=== PATIENT | female | born 1960 | race African-American/Black ===

== ENCOUNTER 2024-10-22 08:19 | Outpatient (CLI) | payer MEDICARE, OTHER ==
[2024-10-22] MEDS ORDERED: Magnevist 469MG/ML 20 ML VIAL ONE (14:04)
== END 2024-10-22 08:20 | disposition home or self-care (01) ==
LOC: MRI 08:19
PROVIDERS: ATTEND Neurological Surgery
DX: C71.9 Malignant neoplasm of brain, unspecified (principal)
CPT/HCPCS: 70553; 76376